=== PATIENT | male | born 1955 | race Caucasian/White ===

== ENCOUNTER → 2016-06-23 | Outpatient (CLI) | payer BC ==
--- NOTE | 2016-06-23 11:34 | XR ---
EXAMINATION TYPE: XR lumbosacral spine min 4V DATE OF EXAM ORDERED: 06/23/2016 10:36 AM HISTORY: M54.5 Low back pain. COMPARISON: None. FINDINGS: There is a minimal dextroscoliosis. There is a minimal, degenerative grade 1 spondylolisthesis of L4 on L5. Alignment is otherwise mainta ined. There is no spondylolysis. There is severe disc space loss and vacuum phenomena present at L5-S 1. There is mild, diffuse disc space loss elsewhere. There is mild facet arthropathy in the lower lumbar facets bilaterally, worse on the right than the l eft. The pedicles are intact. IMPRESSION: 1. NO ACUTE OSSEOUS LESION. 2. DEGENERATIVE CHANGE.
== END | disposition home or self-care (01) ==
LOC: RADXRMAIN 10:14
PROVIDERS: ATTEND Family Medicine
DX: M47.816 Spondylosis without myelopathy or radiculopathy, lumbar region (principal)
CPT/HCPCS: 72110